=== PATIENT | male | born 1935 | race Caucasian/White ===

== ENCOUNTER → 2020-10-11 | Outpatient (CLI) | payer MEDICARE ==
[2020-10-11 10:46] LABS: ALBUMIN 3.1 GM/DL (3.2-4.5); CALCIUM 8.8 MG/DL (8.5-10.1); CREATININE SERUM 1.7 MG/DL (0.60-1.30); POTASSIUM 3.8 MMOL/L (3.6-5.0)
[2020-10-11 15:27] LABS: PHOSPHORUS 3.4 MG/DL (2.3-4.7)
== END ==
LOC: IHC 09:29
PROVIDERS: ATTEND Internal Medicine
DX: I13.0 Hypertensive heart and chronic kidney disease with heart failure and stage 1 through stage 4 chronic kidney disease, or unspecified chronic kidney disease (principal); N18.4 Chronic kidney disease, stage 4 (severe); I50.9 Heart failure, unspecified
CPT/HCPCS: 80069

== ENCOUNTER → 2020-10-25 | Outpatient (CLI) | payer MEDICARE ==
[2020-10-25 12:49] LABS: POTASSIUM 3.7 MMOL/L (3.6-5.0)
[2020-10-25 12:50] LABS: ALBUMIN 3.5 GM/DL (3.2-4.5); CALCIUM 9.5 MG/DL (8.5-10.1); CREATININE SERUM 2.15 MG/DL (0.60-1.30)
[2020-10-25 15:51] LABS: PHOSPHORUS 2.9 MG/DL (2.3-4.7)
== END ==
LOC: IHC 11:52
PROVIDERS: ATTEND Internal Medicine
DX: I13.0 Hypertensive heart and chronic kidney disease with heart failure and stage 1 through stage 4 chronic kidney disease, or unspecified chronic kidney disease (principal); N18.9 Chronic kidney disease, unspecified; I50.9 Heart failure, unspecified
CPT/HCPCS: 80069